=== PATIENT | male | born 1950 | race Caucasian/White ===

== ENCOUNTER → 2023-11-18 19:10 | Outpatient (REF) | payer MEDICARE, OTHER, SELFPAY | LOC: RAD 19:10 | PROVIDERS: ATTENDING PHYSICIAN Family Medicine | DX: R06.2 Wheezing (principal); M79.672 Pain in left foot | CPT/HCPCS: 71046; 73630 ==

== ENCOUNTER → 2023-12-26 07:19 | Outpatient (REF) | payer MEDICARE, OTHER, SELFPAY | LOC: HWRAD 07:19 | PROVIDERS: ATTENDING PHYSICIAN Family Medicine | DX: M85.80 Other specified disorders of bone density and structure, unspecified site (principal); M85.89 Other specified disorders of bone density and structure, multiple sites | CPT/HCPCS: 77080 ==

== ENCOUNTER 2024-10-30 19:24 | Emergency (ER) | payer MEDICARE, OTHER, SELFPAY ==
[2024-10-30 19:25] VITALS: BP 163/91
[2024-10-30 22:00] VITALS: BP 153/88
[2024-10-30 22:14] VITALS: BMI 28.7
--- NOTE | 2024-10-30 22:25 | ED.GENMED ---
History of Present Illness
General
Chief Complaint: Fall
Source: patient
Exam Limitations: none
Time Seen by Provider: 10/30/24 21:59
Nursing documentation reviewed up to this point in time: agreed with
History of Present Illness
History of Present Illness:
The patient is a pleasant 74-year-old man who reports that he tripped and fell forward onto his nose and sternal area just prior to arrival. Patient reports there was no loss of consciousness. He denies any headache, nausea or vomiting. He denies
vision changes. Patient reports nosebleed that is now resolved. Patient has pain and swelling of his nose. Patient complains of soreness in his sternal area. Patient has abrasions of his face and right hand. He was able to get up after the fall
and walk. He is not on blood thinners. He denies back pain, neck pain, and abdominal pain. He denies shortness of breath.
Past History
Past History
ED Past Medical History: Cancer (skin, prostate), HTN and Hypercholesterolemia
ED Past Surgical History: Other (hernia surgery)
Social History
Tobacco: Non-smoker
Alcohol: None
Drug: None
Personal:
Living: with family
Employment: Employed
Family History
Family History: Other (Noncontributory)
Review of Systems
Review of Systems
Allergies reviewed?: Yes
All Other Systems: ROS reviewed and negative except as documented in HPI and ROS
Constitutional: Reports no symptoms
EENT: Reports other (Nasal area pain and bleeding)
Respiratory: Reports no symptoms
Cardiac: Reports no symptoms
ABD/GI: Reports no symptoms
: Reports no symptoms
Musculoskeletal: Reports other (Anterior chest wall pain)
Skin: Reports other (Facial abrasions, right hand abrasion)
Neurological: Reports no symptoms
Endocrine: Reports no symptoms
Hematologic/Lymphatic: Reports no symptoms
Psychiatric: Reports no symptoms
Phy Exam
Physical Exam
Physical Exam:
Physical Exam
General: Patient is smiling, conversational, no scalp contusions or deformity.
Neck: supple. No meningismus. Neck is supple. No C-spine tenderness. Bridge of nose appears ecchymotic and swollen. Dried blood in nares. No active bleeding from nose. Abrasion left medial eyebrow area. No loose
teeth. Jaw approximates normally. Left frontal scalp abrasion.
Heart: s1/s2 regular rate and rhythm, mild sternal tenderness without any deformity or ecchymoses. No cervical, thoracic or L-spine tenderness.(Patient denies any back pain)
Lungs: no acute respiratory distress. clear bilaterally. Patient able to take a deep breath with minimal sternal pain
Abdomen: Soft, nontender throughout
Neuro: alert and orientedx3. no focal neurological deficits. EOMI
Skin: Abrasions on dorsal aspect of right hand. Abrasion left frontal scalp.
Psychiatric: well kept. interactive and cooperative
Extremities: Full range of movement of upper and lower extremities. No bony tenderness of upper or lower extremities. Pelvis and hips nontender
Course
Orders/Labs/Results
Orders:
Orders
10/30/24 19:33
CT Cervical Spine W/o Iv Contr Urgent
Comment:
Reason For Exam: fall with head strike, bleeding from nose
CT Head W/o Iv Contrast Urgent
Comment:
Reason For Exam: fall with head strike, bleeding from nose
Facial Bones wo Contrast CT [CT Facial Bones W/o Iv Contras] Urgent
Comment:
Reason For Exam: fall with head strike, bleeding from nose
10/30/24 19:36
Sternum 2 Views CR [CR Sternum Min 2 Views] Urgent
Comment:
Reason For Exam: pain after fall
10/30/24 22:22
Acetaminophen [Tylenol] 1,000 mg PO NOW STA
10/30/24 22:23
Tramadol HCl [Ultram] 50 mg PO NOW STA
10/30/24 22:28
Tetanus/Diphth/Acelpertussis [Adacel] 0.5 ml IM .ONCE ONE
10/30/24 23:[address] Non Medication Order As Directed
Physician Order: please send home with incentive spirometer
Above order entered?: Yes
Vital Signs
Initial and Last Documented VS:
Initial Vital Signs
Temp Pulse Resp BP Pulse Ox
97.6 F 66 18 163/91 97
10/30/24 19:25 10/30/24 19:25 10/30/24 19:25 10/30/24 19:25 10/30/24 19:25
Last Documented Vital Signs
Temp Pulse Resp BP Pulse Ox
97.6 F 60 16 152/81 99
10/30/24 19:25 10/30/24 23:35 10/30/24 23:35 10/30/24 23:35 10/30/24 23:35
MDM/Problems Addressed
Differential Diagnosis Includes:
Nasal bone fracture, subdural hematoma, sternal bone fracture, rib fracture
MDM/Problems Addressed:
Patient presents with acute nasal pain and swelling as well as acute chest wall pain after fall
Chronic conditions affecting care: HTN
Acute Exacerbation and/or Progression of Chronic Illness:
Patient likely hypertensive due to pain and anxiety
Acute Exacerbation and/or Progression of Chronic Illness: HTN
*Radiology
Radiology exam reviewed: preliminary read by ED provider (Sternal x-ray reviewed by me. Possible defect seen.) and radiology read reviewed
*Pulse Oximetry
Patient hypoxic: no
*EKG
Interpreted by ED Provider?: NA
*Traffic Observer Interpretation
Rate: normal
Interpretation: normal
Rhythm: sinus
*Critical Care Note
Total Time (30-74mins, 75-104mins- exclusive of procedures): Not Applicable
Data Reviewed
Review of Other/Old Records Reveals: Testing (Cardiac echo 2020 shows a normal EF with mild aortic regurg)
Source: patient and spouse
Patient Management
Social determinants of health affecting care: Living situation and Strong social support
Escalation/DeEscalation of care consider admission/obs:
Patient appears very well and comfortable. He is up walking around without any shortness of breath and his pain is very well-controlled.
We discussed doing a CT of patient's chest to look for cardiac contusion or any other contusions, such as pulmonary contusions, however, patient appears very well and comfortable and would really like to go home. bus monitor shows a normal
sinus rhythm. Patient is not tachypneic, tachycardic or hypoxic. Patient told to return immediately with any difficulty breathing, lightheadedness or dizziness or any other concerns
ED Attending Note
-
Portions of this chart may have been created with voice recognition software.� Occasional wrong word or��sound alike� substitutions may have occurred due to the inherent limitations of voice recognition software.
Discharge Plan
Departure
Patient Disposition: Home (Routine Discharge)
Date of Disposition: 10/30/24
Time of Disposition: 23:34
Patient with high blood pressure during this ER visit?: Yes
Condition: Good
Covid-19: Not Applicable
Discharge Problem:
Fall from slip, trip, or stumble, Fracture of nasal bone, Abrasion of face, Abrasion of skin of right hand, Sternal fracture
Instructions: Sternal Fracture, Nose Fracture ED, How to use an incentive spirometer, Abrasions - ED discharge instructions, BLOOD PRESSURE, Fall Prevention for Older Adults
Prescriptions:
New
tramadol 50 mg tablet
50 mg PO TID PRN (Reason: Pain) Qty: 10 0RF
No Action
aspirin 325 MG tablet
325 mg PO DAILY
sumatriptan succinate [Imitrex] 100 MG tablet
100 mg PO DAILYPRN PRN (Reason: migraine)
nifedipine [Procardia XL] 90 MG tablet extended release 24hr
90 mg PO DAILY
zagrrwngrm-qahpogz-eikxqnoo 1 EACH tablet
1 ea PO Q6HPRN PRN (Reason: migraine)
losartan [Cozaar] 100 MG tablet
100 mg PO HS
rosuvastatin 20 MG tablet
20 mg PO HS
duloxetine 60 MG capsule,delayed release(DR/EC)
60 mg PO DAILY
vitamin E (dl, acetate) 400 UNITS capsule
400 units PO DAILY
Balance Nature
1 dose PO DAILY
Patient Comments:
09/27/2020: 3 veggie and 3 fruit caps
Biotin
1 tab PO DAILY
[place] 3-6-9 Complex Softgel
1 tab PO DAILY
Vitamin C:
1 tab PO DAILY
Vitamin D
1 tab PO DAILY
Referrals:
Srinivasan Duke MD [Family Provider] -
Kitty Spaulding MD [Active] - (See in about 5-7 days)
Activity Restrictions/Additional Instructions:
Please follow-up with your primary care doctor in about 2 to 3 days.
Please return immediately for any worsening shortness of breath, lightheadedness, worsening chest pain, dizziness, or fever.
Interventions
Interventions:
*Risk Screen - Suicide Last Done: 10/30/24 23:58
*General Assessment Last Done: 10/30/24 19:25
*Neglect/Abuse Screening Last Done: 10/30/24 19:25
*ED- Fall Risk Assessment Last Done: 10/30/24 23:59
*ED COVID-19 Vaccine History Last Done: 10/30/24 19:25
*Nursing Disposition Last Done: 10/30/24 23:58
ED-Musculoskeletal Assessment Last Done: 10/30/24 22:13
ED- Neurological Assessment Last Done: 10/30/24 22:13
ED-Skin Assessment Last Done: 10/30/24 22:13
Discharge Date and Time
Discharge Date/Time: 10/30/24 23:58
Print Language: DIVEHI
[2024-10-30] MEDS: TYLENOL 1000 MG PO (22:32)
[2024-10-30] MEDS: ULTRAM 50 MG PO (22:33)
[2024-10-30] MEDS: ADACEL 0.5 ML IM (22:33)
[2024-10-30 23:35] VITALS: BP 152/81
== END 2024-10-30 23:58 | disposition home or self-care (01) ==
LOC: EMR 19:24
PROVIDERS: EMERGENCY PHYSICIAN Emergency Medicine; FAMILY PHYSICIAN Family Medicine
DX: S02.2XXA Fracture of nasal bones, initial encounter for closed fracture (principal); S22.22XA Fracture of body of sternum, initial encounter for closed fracture; S00.212A Abrasion of left eyelid and periocular area, initial encounter; S60.511A Abrasion of right hand, initial encounter; W01.0XXA Fall on same level from slipping, tripping and stumbling without subsequent striking against object, initial encounter; I10 Essential (primary) hypertension; E78.00 Pure hypercholesterolemia, unspecified; Z85.828 Personal history of other malignant neoplasm of skin; Z23 Encounter for immunization
CPT/HCPCS: 90471; 99284; 70450; 70486; 71120; 72125; 90715

== ENCOUNTER 2024-12-13 06:17 | Day surgery (SDC) | payer MEDICARE, OTHER, SELFPAY | END 2024-12-13 11:03 | disposition home or self-care (01) | LOC: GI 06:17 | PROVIDERS: ATTENDING PHYSICIAN Specialist; FAMILY PHYSICIAN Family Medicine | DX: K22.70 Barrett's esophagus without dysplasia (principal); K44.9 Diaphragmatic hernia without obstruction or gangrene; K31.7 Polyp of stomach and duodenum | CPT/HCPCS: 43239; 88305 ==

== ENCOUNTER → 2025-06-13 15:29 | Outpatient (REF) | payer MEDICARE, OTHER, SELFPAY | LOC: HWRAD 15:29 | DX: M54.42 Lumbago with sciatica, left side (principal) | CPT/HCPCS: 72110; 72170 ==